=== PATIENT | male | born 1945 | race Caucasian/White ===

== ENCOUNTER 2018-08-26 01:47 | Inpatient (IN) | payer BC, MEDICARE ==
--- NOTE | 2018-08-26 02:10 | ED ---
SOB HPI - General Chief Complaint: Shortness of Breath Stated Complaint: Difficulty Breathing Time Seen by Provider: 08/26/18 02:00 Source: patient Mode of arrival: EMS Limitations: physical limitation (Severe dyspnea) - History of Present Illness Initial Comments: This patient is 73-year-old man presenting to be evaluated for progressively worsening shortness of breath. Patient was not able to lie flat tonight. Eyes breathing became very severe and they called EMS. Patient denies previous history. History is somewhat limited due to dyspnea on arrival. MD Complaint: shortness of breath, cough Onset/Timin -: days(s) Consistency: constant Improves With: oxygen Worsens With: lying flat Context: recent URI Associated Symptoms: denies other symptoms - Related Data Home Medications Medication Instructions Recorded Confirmed Finasteride [Proscar] 5 mg PO DAILY 08/26/18 08/26/18 Allergies Allergy/AdvReac Type Severity Reaction Status Date / Time Penicillins Allergy Anaphylaxis Verified 08/26/18 02:02 Review of Systems ROS Statement: Those systems with pertinent positive or pertinent negative responses have been documented in the HPI. ROS Other: All systems not noted in ROS Statement are negative. Constitutional: Denies: fever, chills Respiratory: Reports: cough, dyspnea Cardiovascular: Reports: orthopnea. Denies: chest pain, palpitations, syncope Gastrointestinal: Reports: abdominal pain (Patient complains of having weeks of epigastric pain.). Denies: nausea, vomiting, melena, hematochezia Genitourinary: Denies: dysuria Musculoskeletal: Denies: back pain Skin: Denies: rash Neurological: Denies: headache, weakness, numbness Past Medical History Additional Past Medical History / Comment(s): prostate enlargment, stomach ulcers History of Any Multi-Drug Resistant Organisms: None Reported Past Surgical History: Orthopedic Surgery Past Psychological History: No Psychological Hx Reported Smoking Status: Never smoker Past Alcohol Use History: None Reported Past Drug Use History: None Reported General Exam Limitations: no limitations General appearance: alert, in distress Head exam: Present: atraumatic, normocephalic Eye exam: Present: normal appearance. Absent: scleral icterus, conjunctival injection Neck exam: Present: normal inspection Respiratory exam: Present: respiratory distress, rales. Absent: wheezes, rhonchi, stridor Cardiovascular Exam: Present: normal rhythm, tachycardia, gallop. Absent: systolic murmur, diastolic murmur, rubs GI/Abdominal exam: Present: soft. Absent: distended, tenderness, guarding, rebound, mass Extremities exam: Present: normal inspection, normal capillary refill. Absent: pedal edema, calf tenderness Back exam: Present: normal inspection Skin exam: Present: warm, dry, intact, normal color. Absent: rash Course Vital Signs 08/26/18 08/26/18 08/26/18 01:56 02:26 02:27 Pulse Rate 133 H 116 H Respiratory 40 H 34 H 33 H Rate Blood Pressure 108/72 119/77 O2 Sat by Pulse 88 L 94 L Oximetry Medical Decision Making - Medical Decision Making Patient is a 73-year-old man presenting with moderately severe dyspnea, and on arrival appearing to have CHF/pulmonary edema. X-ray does confirm this though underlying infiltrate not able to be ruled out. Patient placed on BiPAP with good improvement of his symptoms. The ECG does appear to show a left bundle-branch block and there is no old ECG for comparison. The patient denying chest pain however. There is epigastric pain but patient states this has been present for weeks. Patient is sent for CT which does not reveal pulmonary embolism area heparin is ordered Patient's case is discussed with Dr. Mueller, cardiology and they state they will see the patient HAKAN this morning. - Lab Data Result diagrams: 08/26/18 02:00 08/26/18 02:00 Lab Results 08/26/18 08/26/18 08/26/18 Range/Units 02:00 02:00 02:00 WBC 13.7 H (3.8-10.6) k/uL RBC 5.94 H (4.30-5.90) m/uL Hgb 16.0 (13.0-17.5) gm/dL Hct 51.1 (39.0-53.0) % MCV 86.1 (80.0-100.0) fL MCH 27.0 (25.0-35.0) pg MCHC 31.4 (31.0-37.0) g/dL RDW 15.0 (11.5-15.5) % Plt Count 287 (150-450) k/uL Neutrophils % 84 % Lymphocytes % 9 % Monocytes % 6 % Eosinophils % 0 % Basophils % 0 % Neutrophils # 11.4 H (1.3-7.7) k/uL Lymphocytes # 1.3 (1.0-4.8) k/uL Monocytes # 0.8 (0-1.0) k/uL Eosinophils # 0.0 (0-0.7) k/uL Basophils # 0.1 (0-0.2) k/uL PT (9.0-12.0) sec INR (<1.2) APTT (22.0-30.0) sec D-Dimer (<0.60) mg/L FEU Sodium 140 (137-145) mmol/L Potassium 4.1 (3.5-5.1) mmol/L Chloride 104 (98-107) mmol/L Carbon Dioxide 22 (22-30) mmol/L Anion Gap 14 mmol/L BUN 25 H (9-20) mg/dL Creatinine 0.98 (0.66-1.25) mg/dL Est GFR (CKD-EPI)AfAm 88 (>60 ml/min/1.73 sqM) Est GFR (CKD-EPI)NonAf 76 (>60 ml/min/1.73 sqM) Glucose 269 H (74-99) mg/dL Calcium 9.4 (8.4-10.2) mg/dL Magnesium 1.9 (1.6-2.3) mg/dL Total Bilirubin 1.2 (0.2-1.3) mg/dL AST 52 (17-59) U/L ALT 73 H (21-72) U/L Alkaline Phosphatase 180 H (38-126) U/L Total Creatine Kinase 141 (55-170) U/L CK-MB (CK-2) 4.3 H (0.0-2.4) ng/mL CK-MB (CK-2) Rel Index 3.0 Troponin I 0.300 H* (0.000-0.034) ng/mL NT-Pro-B Natriuret Pep pg/mL Total Protein 7.5 (6.3-8.2) g/dL Albumin 4.4 (3.5-5.0) g/dL 08/26/18 08/26/18 Range/Units 02:00 02:00 WBC (3.8-10.6) k/uL RBC (4.30-5.90) m/uL Hgb (13.0-17.5) gm/dL Hct (39.0-53.0) % MCV (80.0-100.0) fL MCH (25.0-35.0) pg MCHC (31.0-37.0) g/dL RDW (11.5-15.5) % Plt Count (150-450) k/uL Neutrophils % % Lymphocytes % % Monocytes % % Eosinophils % % Basophils % % Neutrophils # (1.3-7.7) k/uL Lymphocytes # (1.0-4.8) k/uL Monocytes # (0-1.0) k/uL Eosinophils # (0-0.7) k/uL Basophils # (0-0.2) k/uL PT 10.8 (9.0-12.0) sec INR 1.0 (<1.2) APTT 23.7 (22.0-30.0) sec D-Dimer 2.73 H (<0.60) mg/L FEU Sodium (137-145) mmol/L Potassium (3.5-5.1) mmol/L Chloride (98-107) mmol/L Carbon Dioxide (22-30) mmol/L Anion Gap mmol/L BUN (9-20) mg/dL Creatinine (0.66-1.25) mg/dL Est GFR (CKD-EPI)AfAm (>60 ml/min/1.73 sqM) Est GFR (CKD-EPI)NonAf (>60 ml/min/1.73 sqM) Glucose (74-99) mg/dL Calcium (8.4-10.2) mg/dL Magnesium (1.6-2.3) mg/dL Total Bilirubin (0.2-1.3) mg/dL AST (17-59) U/L ALT (21-72) U/L Alkaline Phosphatase (38-126) U/L Total Creatine Kinase (55-170) U/L CK-MB (CK-2) (0.0-2.4) ng/mL CK-MB (CK-2) Rel Index Troponin I (0.000-0.034) ng/mL NT-Pro-B Natriuret Pep 2640 pg/mL Total Protein (6.3-8.2) g/dL Albumin (3.5-5.0) g/dL - EKG Data -: EKG Interpreted by Ar EKG shows normal: sinus rhythm, axis (Left axis deviation), intervals (QRS duration 1:30 milliseconds, consistent with a left bundle-branch block), QRS complexes (Bundle-branch block) Rate: tachycardia (Rate 126) Interpretation: nonspecific ST-T wave changes Critical Care Time Critical Care Time: Yes (40 minutes) Disposition Clinical Impression: Acute pulmonary edema, Elevated troponin I level Disposition: ADMITTED IP TO THIS [facility] Condition: Serious Is patient prescribed a controlled substance at d/c from ED?: No
[2018-08-26] MEDS ORDERED: FUROSEMIDE 10 MG/ML 2 ML VIAL IV ONE (02:11)
[2018-08-26] MEDS ORDERED: MORPHINE SULFATE 4 MG/ML SYRINGE IV STA (02:11)
[2018-08-26 02:46] LABS: Basophils # (A) 0.1 k/uL (0-0.2); Basophils % (A) 0 %; Eosinophils % (A) 0 %; HCT 51.1 % (39.0-53.0); Lymphocytes # (A) 1.3 k/uL (1.0-4.8); Lymphocytes % (A) 9 %; MCHC 31.4 g/dL (31.0-37.0); MCV 86.1 fL (80.0-100.0); Mean Platelet Volume 7.7; Monocytes # (A) 0.8 k/uL (0-1.0); Monocytes % (A) 6 %; Neutrophils # (A) 11.4 k/uL (1.3-7.7); Neutrophils % (A) 84 %; Platelet Count 287 k/uL (150-450); RBC 5.94 m/uL (4.30-5.90); WBC 13.7 k/uL (3.8-10.6)
--- NOTE | 2018-08-26 02:47 | XR ---
EXAM: XR Chest, 1 View CLINICAL HISTORY: ITS.REASON XR Reason: dyspnea TECHNIQUE: Frontal view of the chest. COMPARISON: No relevant prior studies available. FINDINGS: Lungs: Bilateral airspace disease greater on the right side, especially in the perihilar location. Pleural space: Small amount of fissural fluid or thickening on the right side. No pneumothorax. Heart: Unremarkable. No cardiomegaly. Mediastinum: Unremarkable. Bones/joints: Unremarkable. IMPRESSION: Bilateral airspace disease greater on the right side, especially in the perihilar location. May represent pneumonia.
[2018-08-26] MEDS ORDERED: LEVOFLOXACIN 750 MG TAB PO STA (02:57)
[2018-08-26 02:58] LABS: Albumin 4.4 g/dL (3.5-5.0); Calcium 9.4 mg/dL (8.4-10.2); Magnesium 1.9 mg/dL (1.6-2.3); Potassium 4.1 mmol/L (3.5-5.1); Total Bilirubin 1.2 mg/dL (0.2-1.3); Total Protein 7.5 g/dL (6.3-8.2)
[2018-08-26 03:15] LABS: Partial Thromboplastin Time 23.7 sec (22.0-30.0); Prothrombin Time 10.8 sec (9.0-12.0)
[2018-08-26 03:31] LABS: D-Dimer 2.73 mg/L FEU (<0.60)
[2018-08-26 03:32] LABS: Creatine Kinase MB 4.3 ng/mL (0.0-2.4)
[2018-08-26 03:34] LABS: Troponin I 0.3 ng/mL (0.000-0.034)
[2018-08-26] MEDS ORDERED: AZTREONAM 2 GM in SODIUM CHLORIDE 0.9% 100 ML IVPB STA (05:09)
--- NOTE | 2018-08-26 05:22 | CT ---
EXAM: CT Angiography Chest With Intravenous Contrast CLINICAL HISTORY: ITS.REASON CT Reason: Pain Patient presents with JAXSON and chest pain. TECHNIQUE: Axial computed tomographic angiography images of the chest with intravenous contrast using pulmonary embolism protocol. CTDI is 12.7 mGy and DLP is 579.3 mGy-cm. This CT exam was performed using one or more of the following dose reduction techniques: automated exposure control, adjustment of the mA and/or kV according to patient size, and/or use of iterative reconstruction technique. MIP reconstructed images were created and reviewed. COMPARISON: Chest x-ray today. FINDINGS: Pulmonary arteries: Breathing motion artifact limits evaluation of peripheral arteries. No central pulmonary embolus. Enlarged pulmonary artery, pulmonary arterial hypertension. Aorta: No acute findings. No thoracic aortic aneurysm. Lungs: Patchy airspace disease/groundglass opacities bilaterally, notably in the right upper lobe and in the perihilar locations. Mild septal thickening. Pleural space: Small to moderate bilateral pleural effusions greater on the right side. No pneumothorax. Heart: Cardiomegaly. No significant pericardial effusion. No evidence of RV dysfunction. Bones/joints: Degenerative changes of the spine and partial fusion of the T10-11 vertebral bodies. No acute fracture. No dislocation. Soft tissues: Unremarkable. Lymph nodes: Unremarkable. No enlarged lymph nodes. Adrenals: 1.3 cm right adrenal adenoma. Query nodular left adrenal gland and fatty 2 cm lesion, likely adrenal myelolipoma. IMPRESSION: 1. Small to moderate bilateral pleural effusions greater on the right side. 2. Cardiomegaly. 3. Breathing motion artifact limits evaluation of peripheral arteries. No central pulmonary embolus. 4. Patchy airspace disease/groundglass opacities bilaterally, notably in the right upper lobe and in the perihilar locations. Mild septal thickening. Likely presents pulmonary edema. DDX, infectious or inflammatory process.
[2018-08-26] MEDS ORDERED: FUROSEMIDE 10 MG/ML 4 ML VIAL IV SCH ×2 (06:15→16:00)
[2018-08-26] MEDS ORDERED: HEPARIN SODIUM,PORCINE 5,000 UNIT/ML 1 ML VIAL IV PRN ×2 (06:18→17:45)
[2018-08-26] MEDS ORDERED: HEPARIN SODIUM,PORCINE 5,000 UNIT/ML 1 ML VIAL IV ONE (06:18)
[2018-08-26] MEDS ORDERED: HEPARIN SOD,PORK IN 0.45% NACL 25,000 UNIT in 0.45% NACL 1 250ML.BAG IV SCH ×2 (06:30→17:45)
[2018-08-26 07:53] LABS: Basophils % (A) 0 %; Eosinophils % (A) 0 %; HCT 47.3 % (39.0-53.0); HGB 15.3 gm/dL (13.0-17.5); Lymphocytes # (A) 0.7 k/uL (1.0-4.8); Lymphocytes % (A) 5 %; MCH 27.6 pg (25.0-35.0); MCHC 32.4 g/dL (31.0-37.0); Monocytes # (A) 0.7 k/uL (0-1.0); Monocytes % (A) 6 %; Neutrophils # (A) 11.4 k/uL (1.3-7.7); Neutrophils % (A) 88 %; Platelet Count 263 k/uL (150-450); RBC 5.56 m/uL (4.30-5.90); RDW 14.9 % (11.5-15.5); WBC 12.9 k/uL (3.8-10.6)
[2018-08-26 08:00] LABS: Appearance,Urine Clear (Clear); Bilirubin,Urine Negative (Negative); Blood,Urine Moderate (Negative); Color,Urine Yellow; Glucose,Urine (UA) Negative (Negative); Hyaline Casts,Urine 1 /lpf (0-2); Ketones,Urine Negative (Negative); Leukocyte Esterase,Urine Negative (Negative); Mucus,Urine Rare /hpf; Nitrite,Urine Negative (Negative); Protein,Urine Negative (Negative); RBC,Urine >182 /hpf (0-5); Specific Gravity,Urine >1.050 (1.001-1.035); Squamous Epithelial Cell,Urine <1 /hpf (0-4); Urobilinogen,Urine <2.0 mg/dL (<2.0); WBC,Urine 9 /hpf (0-5)
[2018-08-26 08:08] LABS: INR 1.2 (<1.2); Partial Thromboplastin Time 81.5 sec (22.0-30.0); Prothrombin Time 12.2 sec (9.0-12.0)
[2018-08-26] MEDS ORDERED: ATORVASTATIN 40 MG TAB PO SCH (10:00)
[2018-08-26] MEDS ORDERED: METOPROLOL TARTRATE 25 MG TAB PO SCH (10:00)
[2018-08-26 10:34] LABS: Cholesterol 229 mg/dL (<200); HDL Cholesterol 59 mg/dL (40-60); LDL Cholesterol,Calculated 156 mg/dL (0-99); Triglycerides 72 mg/dL (<150)
[2018-08-26 10:40] VITALS: BMI 25.7
--- NOTE | 2018-08-26 11:18 | CONS ---
CONSULTATION Mr. Abdullahi is a 73-year-old male with no prior documented coronary artery disease who presented to the emergency room with symptoms of acute dyspnea. It started yesterday in the morning but got worse and to the point that he could not breathe at all and came into the emergency room. At the time my evaluation, he is feeling better. He is on the BiPAP. He has receive diuretics. He had epigastric pain for a few days, but not chest discomfort. He denies any prior history of PND, orthopnea, or peripheral edema. No dizziness or palpitation. He has no prior cardiac history. He is active physically without significant problem on a regular basis. He denies any history of recent cardiac workup. He has a remote history of peptic ulcer disease, but no recent GI bleeding. His coronary risk factors negative for hypertension, hyperlipidemia, or diabetes. He is nonsmoker. His only medication includes Proscar. REVIEW OF SYSTEMS: RESPIRATORY SYSTEM: He has no recent wheezing. No history of obstructive lung disease. No cough or fever. GI SYSTEM: No recent GI bleeding. No peptic ulcer disease. SYSTEM: He had a prior history of nephrolithiasis, but no recent bleeding. NERVOUS SYSTEM: No stroke or seizure. PHYSICAL EXAMINATION: He is a 73-year-old male, alert, oriented, on the BiPAP. Her blood pressure 110/80 with a heart rate 105. HEAD: Normocephalic. EYES: Sclerae anicteric. NECK: Good upstroke. No bruit. No jugular venous distention. Lungs with few crackles at the bases. HEART: Irregular rhythm, tachycardic. S1, S2. No S3. No rub with a soft systolic murmur at the base. No diastolic murmur. ABDOMEN: Soft, nontender. No organomegaly. Positive bowel sounds. EXTREMITIES: No edema. Intact pulses. LAB DATA: Lab data revealed troponin 0.3. NT proBNP of 2640. BUN and creatinine 25 and 0.98, glucose 269. Hemoglobin of 15.3, white blood cell of 12.9. Chest x-ray revealed evidence of pulmonary edema. EKG revealed sinus mechanism with intraventricular conduction delay and left axis deviation and nonspecific ST-T wave changes. CT scan of the chest shows no pulmonary embolism with small to moderate bilateral pleural effusion with evidence suggestive of pulmonary edema. IMPRESSION: 1. Acute dyspneic event with evidence of fluid overload and pulmonary edema of unclear etiology. 2. Elevated troponin, possibly representing non ST-segment elevation myocardial infarction. 3. Prior history of peptic ulcer disease with no acute bleeding. RECOMMENDATION: From the cardiac standpoint, we will continue the patient on IV heparin and IV Lasix. I will add a low dose of beta teodoro. I will obtain echocardiogram with Doppler. We will follow his lab data. If he is stable, I would recommend to proceed with coronary angiography in the morning. Otherwise, will do that today. If he is stable I will favor to wait until the morning since his symptoms are better to improve his respiratory status and because he received the dye related to his CT scan. I have discussed those findings with the patient and his and they are in full understanding and agreement. Thank you for this consult. We will follow with you. ARISTIDES / BETITON: [id number] /
[2018-08-26 11:19] LABS: Creatine Kinase MB 80.2 ng/mL (0.0-2.4)
[2018-08-26 11:24] VITALS: BP 115/75
[2018-08-26] MEDS ORDERED: ATORVASTATIN 40 MG TAB PO STA (12:26)
[2018-08-26] MEDS ORDERED: SODIUM CHLORIDE 0.9% 1,000 ML in EMPTY BAG 1 BAG IV ONE (12:26)
[2018-08-26] MEDS ORDERED: ALPRAZolam 0.5 MG TAB PO PRN (12:26)
[2018-08-26] MEDS ORDERED: NITROGLYCERIN SL TABS 0.4 MG TAB SUBLINGUAL PRN (12:26)
[2018-08-26] MEDS ORDERED: ALPRAZolam 0.25 MG TAB PO PRN (12:26)
[2018-08-26] MEDS ORDERED: ASPIRIN 325 MG TAB PO STA (12:26)
[2018-08-26] MEDS ORDERED: fentaNYL (PF) 50 MCG/ML 2 ML AMP ONE (12:57)
[2018-08-26] MEDS ORDERED: LIDOCAINE 1% INJ 10MG/ML (20 ML MDV) ONE (12:57)
[2018-08-26] MEDS ORDERED: VERAPAMIL 2.5 MG/ML 2 ML AMP ONE (12:57)
[2018-08-26] MEDS ORDERED: HEPARIN SODIUM 1,000 UN/ML (10ML VL) ONE (12:57)
[2018-08-26] MEDS ORDERED: IV FLUID CONTINUATION 500 ML IV ONE (13:00)
[2018-08-26] MEDS ORDERED: fentaNYL (PF) 50 MCG/ML 2 ML AMP IV ONE (13:15)
[2018-08-26] MEDS ORDERED: LIDOCAINE 1% INJ 10MG/ML (20 ML MDV) SQ ONE (13:18)
[2018-08-26] MEDS ORDERED: VERAPAMIL SYRINGE (5 MG/10 ML) INTRAARTER ONE (13:19)
[2018-08-26 13:20] LABS: Creatine Kinase MB 95.4 ng/mL (0.0-2.4)
[2018-08-26] MEDS ORDERED: FUROSEMIDE 10 MG/ML 4 ML VIAL ONE ×2 (13:20→14:48)
[2018-08-26 13:21] LABS: Troponin I 34.9 ng/mL (0.000-0.034)
[2018-08-26] MEDS ORDERED: FUROSEMIDE 10 MG/ML 4 ML VIAL IV ONE ×2 (13:23→14:51)
[2018-08-26] MEDS: HEPARIN SODIUM 1,000 UN/ML (10ML VL) IV ONE ×2 (13:32→13:55)
[2018-08-26] MEDS ORDERED: NOREPINEPHRINE 1 MG/ML 4 ML VIAL IV ONE (14:00)
[2018-08-26] MEDS ORDERED: SODIUM CHLORIDE 0.9% 250 ML BAG ONE (14:00)
[2018-08-26 14:27] LABS: ABG Base Excess -3.6 mmol/L; ABG HCO3 23 mmol/L (21-25); ABG PCO2 50 mmHg (35-45)
[2018-08-26 14:30] LABS: ABG PO2 50 mmHg (83-108)
[2018-08-26 14:31] LABS: ABG PH 7.29 (7.35-7.45)
[2018-08-26 14:32] LABS: ABG Oxygen Saturation 77.3 % (94-97)
[2018-08-26] MEDS ORDERED: IOPAMIDOL-370 100ML BTL INJ ONE (14:40)
[2018-08-26] MEDS ORDERED: NITROGLYCERIN-D5W PMX 50 MG in DEXTROSE/WATER 1 250ML.BAG IV ONE (14:52)
[2018-08-26] MEDS ORDERED: RX INFO: IV CONTRAST WAS GIVEN 1 EACH MISC MISCELLANE PRN (14:53)
[2018-08-26] MEDS ORDERED: SODIUM CHLORIDE 0.9% 1,000 ML IV SCH (15:00)
[2018-08-26] MEDS ORDERED: PROPOFOL 1,000 MG in EMPTY BAG 1 BAG IV SCH (15:00)
--- NOTE | 2018-08-26 15:39 | CC ---
CARDIAC CATHETERIZATION REPORT Mr. Abdullahi is a 73-year-old male with no prior documented history of cardiac disease and no history of documented cardiac abnormality, who presented to the emergency room with acute onset dyspnea and evidence of acute pulmonary edema. He had elevation of troponin in the 20s. In view of that, recommendation was made regarding cardiac catheterization. The procedure as well as risks and complications were discussed with the patient who is in full understanding and agreement. PROCEDURE: Patient was brought to slab polisher in a fasting semi-sedated state after receiving fentanyl and Benadryl. He was draped and prepped it conventional fashion. Using Xylocaine anesthesia and Seldinger technique, a 6-Puerto Rican sheath was introduced in the right radial artery. Selective right and left coronary angiography was performed using 5-[place]ican 3 and half bend right and left Klaudia catheter. Multiple views of the coronary artery including a makes views obtained. Following that 5-Pu[place]ican tight pigtail catheter was introduced in the left ventricle and a 30 degree MCKINLEY view of the left ventricle was obtained. At the start of the procedure, patient was becoming more tachycardiac and hypoxic and decision was made to intubate him electively. He was intubated electively by the Anesthesia Department. Following that and after finishing the coronary angiography, using Xylocaine anesthesia in the Seldinger technique, an 8- [place]ican sheath was introduced in the right femoral artery. Subsequently, an intraaortic balloon pump was introduced and positioned in place and secured. Following that, the right radial sheath was removed and hemostasis was obtained with deployment of a TR band. The patient received a total of 5000 units of intravenous heparin as well as intraarterial verapamil. FINDINGS: FLUOROSCOPY: There was calcification involving the coronary arteries. SELECTIVE CORONARY ANGIOGRAPHY: 1. LEFT MAIN: This is a large-sized vessel, bifurcating to the left circumflex, left anterior descending artery. Left main coronary artery has an eccentric plaque distally of 40% to 50%. 2. LEFT ANTERIOR DESCENDING ARTERY: This is a large-sized vessel reaching towards the apex with a wraparound the apex segment. The left anterior descending artery has diffuse intimal disease proximally with area of stenosis up to 60%. It has a large diagonal branch that is totally occluded with retrograde filling. 3. LEFT CIRCUMFLEX: This vessel gives rise to a large first obtuse marginal branch that is subtotally occluded with slow filling and beyond that the left circumflex is totally occluded with no significant antegrade flow. 4. RIGHT CORONARY ARTERY: This vessel is totally occluded proximally with no significant antegrade flow. There is retrograde filling of the distal right coronary artery from the left coronary system, filling the PDA and PLV. 5. LEFT VENTRICULOGRAM: Left ventriculogram was performed in 30 degree MCKINLEY view and revealed a dilated left ventricle with severely impaired left ventricular systolic function. Ejection fraction of 20% with 4+ mitral regurgitation. HEMODYNAMICS: There was no gradient across the aortic valve. The left ventricle end-diastolic pressure was 32-36 mmHg. CONCLUSION: 1. Severe triple-vessel coronary artery disease. 2. Severely impaired left ventricular systolic function. 3. Severe mitral regurgitation. 4. Placement of intraaortic balloon pump. RECOMMENDATION: Most likely the patient has chronic LV dysfunction with prior occlusion of the right coronary artery and the diagonal branch, it appears to be the first obtuse marginal branch to be the acute lesion. The severity of mitral regurgitation might have worsened with the recent event. I have recommended to transfer the patient to a tertiary care facility. His case was discussed with the transfer team at [facility] and to be transferred for more advanced mechanical support. I have discussed those findings with the over the phone and she is in full understanding and agreement. Unfortunately, the prognosis is guarded. Duration of procedure is 62 minutes. MMODL / IJN: [id number] /
--- NOTE | 2018-08-26 15:45 | ECHOT ---
TRANSESOPHAGEAL ECHOCARDIOGRAM TRANSESOPHAGEAL ECHOCARDIOGRAM: INDICATION: Evaluation of mitral valve. DESCRIPTION OF PROCEDURE: The patient was intubated, sedated. The probe was introduced into the esophagus. Images were obtained. Following that, the probe was removed. There were no immediate complications. FINDINGS: Left atrial size is dilated. Left ventricular size is dilated with severe impairment of left ventricular systolic function. Ejection fraction about 20%. The aortic valve is a tricuspid valve with mild calcification and preserved opening. The tricuspid valve appears to be normal. An intra-aortic balloon pump was visualized in the descending thoracic aorta. No pericardial effusion was noted. The mitral valve appears to be calcified, but there is no clear evidence of flail mitral valve leaflets. Doppler pulse wave and color Doppler obtained and revealed severe mitral regurgitation with mild tricuspid and aortic regurgitation. There was no shunting by color Doppler study. CONCLUSION: 1. Dilated left atrium. 2. Severely impaired left ventricular systolic function with dilated left ventricle. 3. Severe mitral regurgitation with no clear evidence of flail mitral valve leaflets. 4. Calcified tricuspid aortic valve with preserved opening and mild aortic regurgitation. 5. Mild tricuspid regurgitation. 6. Intra-aortic balloon pump was visualized in the descending thoracic aorta. MMODL / IJN: [id number] /
[2018-08-26] MEDS ORDERED: METOPROLOL TARTRATE 5 MG/5 ML VIAL IVP ONE (16:09)
[2018-08-26 16:39] LABS: ABG Base Excess -1.2 mmol/L; ABG HCO3 25 mmol/L (21-25); ABG PCO2 52 mmHg (35-45); ABG PH 7.29 (7.35-7.45); ABG PO2 79 mmHg (83-108); ABG TCO2 27 mmol/L (19-24)
--- NOTE | 2018-08-26 16:49 | XR ---
EXAMINATION TYPE: XR chest 1V DATE OF EXAM: 08/26/2018 COMPARISON: Earlier exam INDICATION: Difficulty breathing ET tube placement TECHNIQUE: Single frontal view of the chest is obtained. FINDINGS: The heart size is normal. The pulmonary vasculature is normal. There is a large patchy infiltrate through the right perihilar region. Milder infiltrate is in the le ft lower infrahilar region. Studies can be compatible with ARDS. Endotracheal tube is been placement has tip located 5.4 cm above the jono. There is a radiopaque ma rker at the level of the aortic arch could be related to balloon pump. Correlate with devices present . Nasogastric tube transverses the thorax with tip in the left upper quadrant of the abdomen. On the supine portable chest there is some lucency along the left costophrenic angle region with a wh ite margin. Pneumothorax is considered. However, subsequent study over this area appears less suspici ous with additional lung markings extending beyond this level. Small loculated pneumothorax is not ex cluded at this time. IMPRESSION: 1. Placement of an endotracheal tube with the tip above the jono. 2. Radiopaque markers near the level of the aortic arch. Correlate with devices present. 3. Small pneumothorax at the left costophrenic angle is not excluded. Smaller pneumothoraces may not be well visualized in supine view. Close monitoring is recommended. 4. Findings suspicious for worsening perihilar infiltrates. Correlate for ARDS
[2018-08-26 16:57] LABS: Glucose,Whole Blood 174 mg/dL (75-99)
[2018-08-26] MEDS ORDERED: DOPamine DRIP 800 MG in DEXTROSE/WATER 1 250ML.BAG IV SCH (17:30)
[2018-08-26] MEDS ORDERED: NOREPINEPHRINE 4 MG in SODIUM CHLORIDE 0.9% 250 ML IV SCH (17:30)
[2018-08-26 17:37] VITALS: TEMP 98
[2018-08-26 18:22] LABS: Basophils % (A) 0 %; Eosinophils # (A) 0.2 k/uL (0-0.7); Eosinophils % (A) 1 %; HCT 46.2 % (39.0-53.0); Lymphocytes # (A) 0.8 k/uL (1.0-4.8); Lymphocytes % (A) 4 %; MCH 28.1 pg (25.0-35.0); MCHC 32.6 g/dL (31.0-37.0); MCV 86.3 fL (80.0-100.0); Mean Platelet Volume 7.4; Monocytes # (A) 1.1 k/uL (0-1.0); Monocytes % (A) 6 %; Neutrophils # (A) 15.7 k/uL (1.3-7.7); Neutrophils % (A) 88 %; Platelet Count 263 k/uL (150-450); RBC 5.36 m/uL (4.30-5.90); WBC 17.9 k/uL (3.8-10.6)
[2018-08-26 18:30] VITALS: RESP 0
[2018-08-26 19:32] VITALS: PULSE 77
[2018-08-26] MEDS ORDERED: POTASSIUM CHLORIDE ER 20 MEQ TAB.ER PO SCH (21:00)
[2018-08-27] MEDS ORDERED: ASPIRIN 325 MG TAB PO SCH (06:17)
--- NOTE | 2018-08-27 07:22 | DS ---
DISCHARGE SUMMARY HISTORY PHYSICAL AND DISCHARGE SUMMARY: DATE OF ADMISISON: 08/26/2018 DATE OF TRANSFER: 08/26/2018 PRESENTING COMPLAINT: Shortness of breath. HISTORY OF PRESENTING COMPLAINT: This is a 73-year-old patient who presented to the ER earlier yesterday evening with shortness of breath, apparently started in the morning but got only worse. He could not breathe and presented to the ER. He was initially on BiPAP, there is no prior cardiac history. Patient's EKG had ST-segment changes and patient ruled in for an acute MD with troponin going from 0.3 to 27. Patient was taken down to the cardiac catheterization lab by Dr. Mueller. Patient is found to have severe triple-vessel disease, EF about 20% and 4+ mitral regurgitation and patient had a intra-aortic balloon pump placed. Dr. Mueller discussed with the transfer team at [facility] for further intervention. When I saw the patient earlier today, patient was in the ICU on nitroglycerin drip and also propofol, intubated with a pulse ox of 100 and a PEEP of 10. Dr. Mueller also did carry out a ROCHELLE that again showed severe mitral regurgitation and calcified tricuspid aortic valve. REVIEW OF SYSTEMS: Could not be obtained as patient is intubated. PAST MEDICAL HISTORY: Prostate enlargement, stomach ulcers. PAST SURGICAL HISTORY: Orthopedic surgeries. SOCIAL HISTORY: No smoking, no alcohol. FAMILY HISTORY: Parents and grandparents lived to the 90's. HOME MEDICATIONS: Proscar 5 mg q.h.s. ALLERGIES: PENICILLIN. PHYSICAL EXAMINATION: VITAL SIGNS: Temperature 97.9, pulse 102, blood pressure 115/75. GENERAL APPEARANCE: Tired-appearing. EYES: Pupils equal, conjunctive are normal. HEENT: External appearance of nose and ears normal, oral cavity normal. NECK JVD unable to assess, mass not palpable. RESPIRATORY: Increased. LUNGS: Diminished breath sounds. CARDIOVASCULAR: First and second sounds normal, no edema. ABDOMEN: Soft, nontender. Liver and spleen not palpable. NEUROLOGICAL: Pupils equal, no facial asymmetry. Power and sensation grossly intact. INVESTIGATIONS: Admission labs: white count 13.7, hemoglobin 16, potassium 4.1, BUN 25, creatinine 0.98. Troponin 0.3, 27, LDL 156. Chest x-ray film personally reviewed by me shows cardiomegaly, severe pulmonary edema. Chest CTA cardiomegaly, possibly pulmonary edema. EKG tracing personally reviewed by me shows diffuse ST-segment changes. ASSESSMENT: 1. Acute non-ST elevation myocardial infarction. 2. Acute cardiogenic shock requiring intraballoon pump. 3. Severe mitral regurgitation likely from underlying acute myocardial infarction. 4. Benign prostatic hypertrophy. 5. IV heparin monitoring. 6. Acute congestive heart failure exacerbation, ejection fraction 20% from underlying acute myocardial infarction. PLAN: The patient is on intra-aortic balloon pump, also on IV nitro, IV heparin. DISPOSITION: Transferred to [facility] for higher level of care. Because of bad weather I was informed, patient cannot be transferred by helicopter. CONSULTATION: Dr. Mueller from Cardiology. This is both a history and physical and a transfer summary. MMODL / IJN: [id number] /
[2018-08-27] MEDS ORDERED: ASPIRIN 81 MG PO SCH (09:00)
== END 2018-08-26 19:45 | disposition short-term general hospital (02) | DRG 270 ==
LOC: EC 01:47 → 3SCARD 06:18 → 2SICU 15:19
PROVIDERS: ADMIT Hospitalist; ATTEND Hospitalist
PROC: B2111ZZ Fluoroscopy of Multiple Coronary Arteries using Low Osmolar Contrast (ICD-10-PCS; 2018-08-26)
PROC: B2151ZZ Fluoroscopy of Left Heart using Low Osmolar Contrast (ICD-10-PCS; 2018-08-26)
PROC: 0BH17EZ Insertion of Endotracheal Airway into Trachea, Via Natural or Artificial Opening (ICD-10-PCS; 2018-08-26)
PROC: 5A1935Z Respiratory Ventilation, Less than 24 Consecutive Hours (ICD-10-PCS; 2018-08-26)
PROC: B24BZZ4 Ultrasonography of Heart with Aorta, Transesophageal (ICD-10-PCS; 2018-08-26)
PROC: 4A023N7 Measurement of Cardiac Sampling and Pressure, Left Heart, Percutaneous Approach (ICD-10-PCS; principal; 2018-08-26 12:44)
PROC: 5A02210 Assistance with Cardiac Output using Balloon Pump, Continuous (ICD-10-PCS; 2018-08-26 12:44)
DX: I21.4 Non-ST elevation (NSTEMI) myocardial infarction (principal); R57.0 Cardiogenic shock; I50.1 Left ventricular failure, unspecified; R09.02 Hypoxemia; I25.10 Atherosclerotic heart disease of native coronary artery without angina pectoris; I44.7 Left bundle-branch block, unspecified; N40.0 Benign prostatic hyperplasia without lower urinary tract symptoms; I08.3 Combined rheumatic disorders of mitral, aortic and tricuspid valves; Z87.11 Personal history of peptic ulcer disease; Z86.19 Personal history of other infectious and parasitic diseases
CPT/HCPCS: 33967; 36415; 36600; 71045; 71275; 80053; 80061; 81001; 82550; 82553; 82805; 83036; 83735; 83880; 84484; 85025; 85379; 85610; 85730; 93005; 93306; 93312; 93320; 93325; 93458; 94002; 94660; 96365; 96366; 96368; 96374; 96375; 96376; 99291